=== PATIENT | male | born 1955 | race Caucasian/White ===

== ENCOUNTER 2017-12-02 06:24 | Emergency (ER) | payer OTHER ==
[2017-12-02 06:37] VITALS: BP 164/80
[2017-12-02] MEDS: Bacitracin Oint 1 GM U/D Packet TOP ONE (07:17)
--- NOTE | 2017-12-02 07:25 | EDM.PDOC ---
ED HPI GENERAL MEDICAL PROBLEM - General Chief Complaint: Diabetic Complaint Stated Complaint: DIABETIC, SORE ON FOOT [id number] Time Seen by Provider: 12/02/17 07:10 Source of Information: Reports: Patient History Limitations: Reports: No Limitations - History of Present Illness INITIAL COMMENTS - FREE TEXT/NARRATIVE: This 62 yo male patient reports to the ED with a blister and redness of his left great toe. The patient is a diabetic and reports neuropathy in his feet. The patient believes that he had a rock in his boot last [place] (11/27/17). Initially, the patient reports that he noticed blistering, but has noticed increased redness of the area. The patient has been keeping the area covered and has been using antibiotic ointment over the area, but has not been able to get into Dr. Moran (podiatry) for an appointment. The patient reports he had a similar incident on the right foot 4 years ago that ended up in an infection and surgery. 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) - Related Data Allergies Allergy/AdvReac Type Severity Reaction Status Date / Time No Known Allergies Allergy Verified 12/02/17 06:32 Home Meds: Home Meds Furosemide [Lasix] 40 mg PO DAILY 02/25/14 [History] Lisinopril 10 mg PO DAILY 02/25/14 [History] atorvaSTATin [Lipitor] 40 mg PO BEDTIME 02/25/14 [History] glyBURIDE [Glyburide] 5 mg PO BID 02/25/14 [History] metFORMIN HCl [Metformin HCl] 1,000 mg PO BID 02/25/14 [History] Albiglutide [Tanzeum] 1 injection SQ ASDIRECTED 12/02/17 [History] Insulin Glarg,Human.Rec.Analog [Lantus Solostar] 28 units SQ BID 12/02/17 [ History] Past Medical History HEENT History: Reports: Impaired Vision Other HEENT History: wears glasses Cardiovascular History: Reports: High Cholesterol, [place] Gastrointestinal History: Reports: GERD Neurological History: Reports: Neuropathy, Diabetic Endocrine/Metabolic History: Reports: Diabetes, Type II Social & Family History - Family History Family Medical History: Noncontributory - Tobacco Use Smoking Status *Q: Unknown Ever Smoked - Caffeine Use Caffeine Use: Reports: Soda - Recreational Drug Use Recreational Drug Use: No ED ROS GENERAL - Review of Systems Review Of Systems: ROS reveals no pertinent complaints other than HPI. ED EXAM GENERAL NO PERIP PULSE - Physical Exam Exam: See Below Exam Limited By: No Limitations General Appearance: Alert, WD/WN, No Apparent Distress, Obese Eye Exam: Bilateral Eye: EOMI, Normal Inspection, PERRL Ears: Normal External Exam, Normal Canal, Hearing Grossly Normal, Normal TMs Nose: Normal Inspection, Normal Mucosa, No Blood Throat/Mouth: Normal Inspection, Normal Lips, Normal Teeth, Normal Gums, Normal Oropharynx, Normal Voice, No Airway Compromise Head: Atraumatic, Normocephalic Neck: Normal Inspection, Supple, Non-Tender, Full Range of Motion Respiratory/Chest: No Respiratory Distress, Lungs Clear, Normal Breath Sounds, No Accessory Muscle Use, Chest Non-Tender Cardiovascular: Normal Peripheral Pulses, Regular Rate, Rhythm, No Edema, No Gallop, No JVD, No Murmur, No Rub GI/Abdominal: Normal Bowel Sounds, Soft, Non-Tender, No Organomegaly, No Distention, No Abnormal Bruit, No Mass (Male) Exam: Deferred Rectal (Males) Exam: Deferred Back Exam: Normal Inspection, Full Range of Motion, NT Extremities: Redness (left great toe with blistering near the base of toe) Neurological: Alert, Oriented, CN II-XII Intact, Normal Cognition, Normal Gait, No Motor/Sensory Deficits Psychiatric: Normal Affect, Normal Mood Skin Exam: Warm, Dry, Erythema (left great toe with blistering (no apparent drainage). Area was covered with antibiotic ointment ) Lymphatic: No Adenopathy Course - Vital Signs Last Recorded V/S: Last Vital Signs Temp 36.1 C 12/02/17 06:35 Pulse 91 12/02/17 06:35 Resp 20 12/02/17 06:35 BP 164/80 H 12/02/17 06:35 Pulse Ox 98 12/02/17 06:35 - Orders/Labs/Meds Meds: Medications Discontinued Medications Generic Name Dose Route Start Last Admin Trade Name Freq PRN Reason Stop Dose Admin Bacitracin 1 dose 12/02/17 07:11 12/02/17 07:17 Bacitracin Oint 1 Gm TOP 12/02/17 07:12 1 dose ONETIME ONE Administration Departure - Departure Time of Disposition: 07:21 Disposition: Home, Self-Care 01 Condition: Fair Clinical Impression: Cellulitis of great toe, left - Discharge Information Instructions: Cellulitis, Adult, [id number] Forms: ED Department Discharge Care Plan Goals: The patient was advised of the examination results during the visit. The patient 's wound was bandaged while in the ED. The patient was given a script for Keflex (500 mg) to take 1 by mouth 4 times per day for 10 days. The patient was encouraged to follow-up with podiatry. If the patient has any additional symptoms or concerns, the patient should follow-up with podiatry, with his primary care facility or return to the emergency department.
== END 2017-12-02 07:30 | disposition home or self-care (01) ==
LOC: DL.ED 06:24
DX: L03.032 Cellulitis of left toe (principal); I25.2 Old myocardial infarction; E11.40 Type 2 diabetes mellitus with diabetic neuropathy, unspecified; Z79.899 Other long term (current) drug therapy; Z79.84 Long term (current) use of oral hypoglycemic drugs
CPT/HCPCS: 99283